=== PATIENT | male | born 1995 | race Caucasian/White ===

== ENCOUNTER → 2018-09-24 | Emergency (ER) | payer OTHER ==
[~2018-09-24] VITALS: Ht 177.8 cm; Wt 73.0 kg
[2018-09-24 17:36] VITALS: BP_SYST 149
== END | disposition still patient (30) ==
LOC: SED 17:26
DX: F41.9 Anxiety disorder, unspecified (principal); R06.02 Shortness of breath; R07.89 Other chest pain; Z53.21 Procedure and treatment not carried out due to patient leaving prior to being seen by health care provider